=== PATIENT | female | born 1990 | race African-American/Black ===

== ENCOUNTER 2021-12-26 19:12 | Emergency (ER) | payer OTHER, SELFPAY ==
[2021-12-26 19:41] VITALS: BP 137/94; PULSE 101; RESP 16; TEMP 36.3; O2SAT 100
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
== END 2021-12-26 20:55 | disposition home or self-care (01) ==
PROVIDERS: Emergency Provider Emergency Medicine; PCP Family Medicine
DX: S39.92XA Unspecified injury of lower back, initial encounter (principal); I10 Essential (primary) hypertension; V43.52XA Car driver injured in collision with other type car in traffic accident, initial encounter
CPT/HCPCS: 99283

== ENCOUNTER 2021-12-31 16:42 | Outpatient (CLI) | payer OTHER, SELFPAY ==
--- NOTE | ~2021-12-31 | XR_ITS ---
EXAMINATION: XR lumbar spine 2-3V DATE: 12/31/2021 17:21 INDICATION: Low back pain TECHNIQUE: Anteroposterior and lateral views of the lumbar spine, and cone-down lateral view of the l umbosacral junction were obtained. COMPARISON: None. FINDINGS: Thoracolumbar levocurvature is noted. Bone alignment is normal. There is no fracture. The v ertebral body heights and alignment are maintained. The intervertebral disc spaces are normal. IMPRESSION: 1. No acute osseous abnormality. Reviewed, dictated and finalized at location A.
== END 2021-12-31 16:43 | disposition home or self-care (01) ==
PROVIDERS: PCP Family Medicine; Visit Provider Chiropractor
DX: M54.50 Low back pain, unspecified (principal)
CPT/HCPCS: 72100

== ENCOUNTER 2022-01-02 14:12 | Outpatient (CLI) | payer OTHER, SELFPAY ==
--- NOTE | ~2022-01-02 | XR_ITS ---
EXAMINATION:XR cervical spine 4-5V DATE: 01/02/2022 14:42 INDICATION: Neck pain TECHNIQUE: AP, lateral in neutral, flexion, and extension, and odontoid views of the cervical spine a re provided. COMPARISON: None FINDINGS: There is straightening of the cervical spine which can be positional or due to muscular spa sm. Alignment is normal. No laxity is present with flexion or extension.. The odontoid is intact. No fracture is identified. Vertebral body heights and disk spaces are normal. Prevertebral soft tissues are normal. IMPRESSION: 1. No acute osseous abnormality. Reviewed, dictated and finalized at location A.
== END 2022-01-02 14:13 | disposition home or self-care (01) ==
PROVIDERS: PCP Family Medicine; Visit Provider Chiropractor
DX: M54.2 Cervicalgia (principal)
CPT/HCPCS: 72050

== ENCOUNTER 2023-11-22 00:55 | Emergency (ER) | payer OTHER, SELFPAY ==
[2023-11-22 01:22] VITALS: BP 153/94; PULSE 92; RESP 14; TEMP 36.4; O2SAT 98
[2023-11-22] MEDS: diphenhydrAMINE HCl INJ 50 MG/ML VIAL 25 MG IV PUSH (02:41)
[2023-11-22] MEDS: PROCHLORPERAZINE EDISYLATE 10 MG/2 ML VIAL IM (02:41)
[2023-11-22] MEDS: KETOROLAC 15 MG/ML VIAL (*BKC) IV PUSH (02:42)
[2023-11-22] MEDS: ACETAMINOPHEN 500 MG TABLET 1000 MG PO (02:42)
--- NOTE | 2023-11-22 03:13 | ED.GENADULT ---
HPI - General Adult General Chief complaint: Headache Stated complaint: RAE, migraine Time Seen by Provider: 11/22/23 01:53 History of Present Illness HPI narrative: This is a 33-year-old female presenting with a headache. It is a frontal headache, that has been going on for approximately 1 week. She says it was not maximal in onset and actually getting worse. This is a associated with some visual changes. She says that she has had headaches like this in the past. Patient has been treating her headache with blood pressure medication as she has had blood pressures of 150/90. This is not been successful. Patient notes that she is under a significant amount of stress lately. Patient denies loss of conscious, neurologic deficits, neck pain or fevers. Related Data Home Medications Medication Instructions Recorded Confirmed levonorgestrel 21 mcg/24 hr (up to 1 device intrauterine ONCE 11/09/23 11/09/23 8 years) 52 mg intrauterine device (Mirena) Allergies Allergy/AdvReac Type Severity Reaction Status Date / Time No Known Allergies Allergy Mild Verified 11/22/23 01:25 [facility] Past Medical History Medical History Hypertension Uterine fibroid Family History Family History Father Hypertension Mother Hypertension Asthma Social History Social History Smoking status: Never smoker Second hand tobacco smoke exposure: No Alcohol intake: never Substance use: never Substance use type: does not use Lack of Transportation: No Lack of Food: Sometimes True Current Housing: I Have Housing Concerned About Future Housing: No Difficulty Paying Gas/Electric Bills: No Difficulty Paying for Meds: No Currently Unemployed: No Education: Trade/Vocational Certificate Difficulty w/ Childcare or Family Care: No Living arrangements: with family Gender identity (if verbalized by the patient): Female Spiritual care concerns: No Agree to blood products: Yes Exam Narrative: APPEARANCE: No apparent distress. Head: atraumatic. EYES: EOMI, NOSE: Atraumatic NECK: Trachea midline RESPIRATORY: No increased rate of breathing CARDIOVASCULAR: RRR, ABDOMINAL: Non-distended MUSCULOSKELETAl: No obvious deformities NEURO: Alert. Cranial nerves 2-12 grossly intact. Sensation light touch, motor function cerebellar function intact for 4 extremities. Gait exam was normal. SKIN:: Warm, dry. Normal color PSYCHIATRIC: Normal affect Course Vital Signs Vital signs: Vital Signs Temperature 97.6 F 11/22/23 01:22 Pulse Rate 92 11/22/23 01:22 Respiratory Rate 14 11/22/23 01:22 Blood Pressure 153/94 H 11/22/23 01:22 Pulse Oximetry 98 11/22/23 01:22 Oxygen Delivery Room Air 11/22/23 01:22 Temperature 97.6 F 11/22/23 01:22 Pulse Rate 92 11/22/23 01:22 Respiratory Rate 14 11/22/23 01:22 Blood Pressure 153/94 H 11/22/23 01:22 Pulse Oximetry 98 11/22/23 01:22 Oxygen Delivery Room Air 11/22/23 01:22 Medical Decision Making MDM Narrative Medical decision making narrative: -Course: 33-year-old female presented frontal headache. Patient is well-appearing. Normal neurologic exam. No concerning findings on history or physical. Patient given a migraine cocktail with improvement. Re-evaluation the patient is sleeping comfortably in her room. Patient is comfortable going home. Patient be discharged home with Motrin and Tylenol for her headache. Primary care follow-up -DDX includes but is not limited to: Migraine tension headache, stress reaction ICH -Co-morbidities complicating care: Hypertension -Interventions: Compazine Benadryl Toradol Tylenol -Shared decision making / Disposition: Discharge -RX Motrin Tylenol Vital Signs Vital Signs: Vital Signs Temperature 97.6 F 11/22/23 01:22 P
== END 2023-11-22 03:27 | disposition home or self-care (01) ==
PROVIDERS: Emergency Provider Emergency Medicine; PCP Family Medicine
DX: R51.9 Headache, unspecified (principal); I10 Essential (primary) hypertension
CPT/HCPCS: 96372; 96374; 96375; 99284; A9270; J0780; J1200; J1885; J7050

== ENCOUNTER 2025-02-02 11:19 | Outpatient (CLI) | payer OTHER, SELFPAY ==
--- OUTSIDE RECORDS SUMMARY | 2025-02-02 11:31 | XMS_ITS | Clinical Summary ---
Author Organization [facility] Address [address] [place] [address] Care Team Providers Care Associate Field Service Engineer Name Role Phone Delores Estes MD Unavailable Jessica Blue MD Primary Care Provider [phone] Source Comments [facility],non-owned Affiliates and Associated Physician Practices is amultiple site organization consisting of ambulatory clinics and hospital sitesin [place], [place], [place] and [place]. This disclosure is being madepursuant to the Care Everywhere program and may not contain all information available regarding this patient. Last updated 17.[facility] Allergies No known active allergies Medications * Be aware that medications may not be up to date on this document. Alwaysverify current medications with the patient. albuterol HFA (VENTOLIN HFA) 8 gram inhaler Inhale 2 Puffs by mouth every 4 hours as needed for Wheezing and Cough. 18 g 1 11/22/2009 Active Active Problems Problem Noted Date Diagnosed Date Extrinsic asthma 11/22/2009 Overview (01/03/2015): Immunizations Immunization Administration Dates Next Due DTaP VACCINE IM (6wk-6yrs) 11/10/1995,,04/09/1993,02/08/1993,04/09 HEP A PEDS 2 DOSE 12/28/2008 HEP B VACCINE, PED/ADOL 08/05/1993,02/08/1993, HIB BOOSTER 08/05/1993,04/19/1993,02/08/1993 MMR 04/09/1992 POLIO IPV 11/10/1995,08/05/1993,04/19/1993 ,02/08/1993 Family History Medical History Relation Name Comments Hypertension Father Allergies Mother Kidney Disease Paternal Grandfather Relation Name Status Comments Father Mother Paternal Grandfather Social History Tobacco Use Types Packs/Day Years Used Date Smoking Tobacco: Never Assessed Comments Unknown Sex and Gender Information Value Date Recorded Sex Assigned at Not on file Legal Sex 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 Gender Identity Not on file Sexual Orientation Not on file Last Filed Vital Signs Vital Sign Reading Time Taken Comments Blood Pressure 134/86 11/21/2019 4:33 PM CDT Pulse 82 11/21/2019 4:33 PM CDT Temperature 36.8 C (98.3 F) 11/21/2019 4:33 PM CDT Respiratory Rate 18 11/21/2019 4:33 PM CDT Oxygen Saturation 98% 11/21/2019 4:33 PM CDT Inhaled Oxygen Concentration - - Weight 109.8 kg (242 lb) 11/21/2019 4:33 PM CDT Height 170.2 cm (5' 7) 11/21/2019 4:33 PM CDT Body Mass Index 37.9 11/21/2019 4:33 PM CDT Plan of Treatment Health Maintenance Due Date Last Done Comments DTAP/TDAP/TD VACCINES (6 - Tdap) 2001 11/10/1995, 08/05/1993, 04/09/1993, Additional history exists HIV SCREENING 2005 HEPATITIS C SCREENING 10/07/2008 HPV VACCINE (1 - 3-dose SCDM series) 2017 DEPRESSION SCREENING 04/05/2024 COVID-19 VACCINE ( season) 2024 INFLUENZA VACCINE (#1) 2024 ZOSTER VACCINE (1 of 2) 2040 HEPATITIS B VACCINE Completed 08/05/1993, 02/08/1993, 11/18/1992 HIB VACCINE Completed 08/05/1993, 04/05, 02/08/1993 MENINGOCOCCAL (Group B) VACCINE SHARED DECISION-MAKING Aged Out No longer eligible based on patient's age to complete this topic MENINGOCOCCAL GROUPS A/C/Y/W VACCINE Aged Out No longer eligible based on patient's age to complete this topic PNEUMOCOCCAL VACCINE Aged Out No long er eligible based on patient's age to complete this topic Insurance [employer] - OUT OF STATE SELF PAY NO INSURANCE Pay * Guarantor: CHERELLE HARRELL Account Type Relation to Patient Date of Phone Billing Address Personal/Family 1990 [address] [place] [address] Care Teams Associate Field Service Engineer Relationship Specialty Start Date End Date Delores Estes MD PCP - Pediatrics 05/20/09 Jessica Blue MD [address] [place] [address] PCP - General Family Medicine 11/17/19
[2025-02-02 14:23] LABS: Hematocrit 41.2 % (37.0-47.0); Hemoglobin 13.5 g/dL (12.0-15.0); Immature Granulocyte Percent A 0.8 % (0-0.5); Lymphocytes Absolute Auto 3.23 K/mm3 (0.9-3.2); Mean Corpuscular HGB Conc 32.8 g/dl (32-36); Mean Corpuscular Hemoglobin 28.5 pg (26-34); Mean Corpuscular Volume 86.9 fl (80-100); Nucleated Red Blood Cells Absolute Auto 0.000 K/mm3 (0.0-0.012); Nucleated Red Blood Cells Perc 0.0 % (0.0-0.2); Platelet Count Result 371 k/mm3 (150-375); Red Blood Count 4.74 M/mm3 (4.2-5.4); White Blood Count 7.2 K/mm3 (4.5-10.0)
[2025-02-02 14:45] LABS: Alanine Aminotransferase 19 U/L (6-35); Albumin Level 4.3 g/dL (3.5-5.1); Alkaline Phosphatase 67 U/L (38-126); Anion Gap 8 mmol/L (4-12); Aspartate Amino Transferase 67 U/L (14-36); Bilirubin,Total 1.0 mg/dL (0.2-1.3); Blood Urea Nitrogen 9 mg/dL (7-17); Calcium 9.4 mg/dL (8.4-10.2); Carbon Dioxide 30 mmol/L (22-30); Chloride 101 mmol/L (98-107); Cholesterol 164 mg/dL (0-200); Estimated Glomerular Filt Rate > 60; Glucose 88 mg/dL (65-110); HDL Direct 40 mg/dL; Potassium 3.4 mmol/L (3.4-5.0); Sodium 139 mmol/L (137-145); Total Protein 7.7 g/dL (6.3-8.2); Triglycerides 112 mg/dL (<150)
== END 2025-02-02 11:20 | disposition home or self-care (01) ==
LOC: ANHGOSHLAB 11:20
DX: E78.2 Mixed hyperlipidemia (principal); R53.83 Other fatigue
CPT/HCPCS: 36415; 80053; 80061; 85025